=== PATIENT | male | born 1945 | race Two or more races ===

== ENCOUNTER 2020-02-03 00:25 | Inpatient (IN) | payer BC ==
[~2020-02-03] VITALS: Ht 180.3 cm; Wt 104.3 kg
[2020-02-03 00:20] VITALS: BP 115/64
[2020-02-03 00:30] VITALS: BP 115/64
--- NOTE | 2020-02-03 03:01 | NUR ---
RN NOTES: AT 2345-RECEIVED PHONE CALL FROM KAMAR/RN IN [facility]. GIVEN ENDORSEMENT REGARDING PATIENT M.D., 74 Y.O., NKA, BIPOLAR DISORDER, PARKINSONS DISEASE, LEFT LEG CELLULITIS, ATRIAL FIBRILLATION ON ANTICOAGULANT, WITH C/O FEVER 103.3,BROUGHT BY AMBULANCE IN THE HOSPITAL, LACTIC 1.4, HE WAS GIVEN TOTAL OF 3 LITERS NORMAL SALINE, VANCOMYCIN 1 GRAM, ROCEPHINE 2 GRAMS, HIS BP-268/130 HE WAS GIVEN LABETALOL 20MG AND HYDRALAZINE 10 MG LATETS BP-116/57, TYLENOL 1G GIVEN FOR FEVER LATEST T-98.2, NO PAIN OR DISCOMFORT , REST OF THE SKIN INTACT EXCEPT THE LEFT LEG.IV CANNULA IN THE RAC G#20.ETA WITHIN 15-20 MINUTES VIA [facility].
--- NOTE | 2020-02-03 03:07 | NUR ---
RN NOTES: PATIENT ARRIVED AT 0020, ACCOMPANIED BY 3 EMT VIA GURNEY([facility]ANCE), A/O2-3, WITH PERIODS OF CONFUSION AND FORGETFULNESS, DX;LEFT LEG CELLULITIS/UTI, NOTED WITH BILATERAL COURSE HAND TREMOR SECONDARY TO HIS PARKINSON DISEASE, NON LABORED BREATHING, NO SOB, NO PAIN OR DISCOMFORT, PLACE IN COMFORTABLE POSITION,SEMI FOWLERS, ORIENTED TO UNIT AND STAFF.BED LOW AND LOCKED, CALL LIGHT KEPT WITHIN EASY REACH, AGREED FOR BODY ASSESSMENT: LEFT FOOT SWELLING AND CELLULITIS(REDNESS NOTED, NO DRAINAGE OR EXUDATE NOTED,OPEN WOUND, NO ODOR)PICTURES TAKEN.PATIENT UNABLE TO RECALL WHEN HE RECIEVED HIS FLU AND PNA VACCINE. NO RESPIRATORY SYMPTOM, HE HAS URINARY FREQUENCY AND NOTED WITH TEA COLORED URINE, USING URINAL AT THE BED SIDE. -WHEN RN ASK REGARDING HIS MEDICATION LIST, HE WAS LOOKING FOR HIS PHONE BUT HE SAID HE MIGHT LEFT IT AT HOME THE LIST IS THERE, UNABLE TO RECALL WHAT ARE HIS PRESENT MEDICATION TAKEN AT HOME, HE CANNOT RECALL ALSO ANY PHONE NUMBER FROM MEMBERS OF FAMILY HE LOOKS TIRED AND HE SAID "I WANT TO REST AND SLEEP". Addendum: 02/03/20 at 0552 by CRYSTAL GOODRICH RN ADDED NOTES: PATIENT IS ON TELE-MONITOR SR WITH PVC RATE=90
--- NOTE | 2020-02-03 03:14 | NUR ---
RN NOTES: AT 0110 DR. MURRELL NOTIFIED ABOUT THE ADMISSION, SHE IS AWARE, AWAITING FOR HER TO PUT IN ADMISSION ORDERS.
--- NOTE | 2020-02-03 03:29 | NUR ---
RN NOTES: F/U WITH REGARDING ADMISSION ORDERS AT THE MOMENT SHE IS VERY BUSY WITH A CRITICAL PATIENT, SHE IS AWARE OF THE DIRECT ADMISSION.
[2020-02-03] MEDS ORDERED: HYDROCODONE/APAP 5/325MG TABLET PO PRN (03:30)
[2020-02-03] MEDS ORDERED: MAGNESIUM HYDROXIDE 30 ML UDC PO PRN (03:30)
[2020-02-03] MEDS ORDERED: MAG HYDROX/AL HYDROX/SIMETH 30 ML UDC PO PRN (03:30)
[2020-02-03] MEDS ORDERED: MORPHINE SULFATE INJ 2 MG/ML DISP.SYRIN IV PRN (03:30)
[2020-02-03] MEDS ORDERED: Z GUARD REMEDY 2 OZ OINT TP PRN (03:30)
[2020-02-03] MEDS ORDERED: ACETAMINOPHEN 325 MG TABLET PO PRN (03:30)
[2020-02-03] MEDS ORDERED: ONDANSETRON HCL/PF 4 MG/2 ML VIAL IVP PRN (03:30)
[2020-02-03] MEDS ORDERED: ZOLPIDEM TARTRATE 5 MG TABLET PO PRN (03:30)
[2020-02-03] MEDS ORDERED: CEFTRIAXONE 1 G in IV D5W 50 ML IV SCH (03:30)
[2020-02-03 04:00] VITALS: BP 135/60
--- NOTE | 2020-02-03 04:03 | NUR ---
RN NOTES: -FOR ORDER OF ROCEPHINE 1 GRAM Q 24HOURS, PATIENT ALREADY RECEIVED THE FIRST DOSE FROM [facility] PRIOR TO DIRECT ADMIT IN [facility]. -CHARGE NURSE NOTIFIED.
[2020-02-03] MEDS: IV NS 0.9% 1,000 ML IV PRN ×2 (04:05→13:50)
--- NOTE | 2020-02-03 04:32 | NUR ---
RN NOTES: AT 0405 IVF ON NS AT 100ML/HR STARTED VIA INFUSION PUMP, ASSISTED TO USE URINAL, HE HAD VERY SCANTY AMOUNT OF URINE AROUND 50CC,DARK TEA COLORED.
--- NOTE | 2020-02-03 04:34 | NUR ---
RN NOTES: MRSA SWAB OF BOTH NARES DONE AND SEND TO LAB.
--- NOTE | 2020-02-03 07:42 | NUR ---
RN NOTES: ABLE TO SLEEP AND REST, NO SIGN OF RESPIRATORY DISTRESS,FALL AND SAFETY PRECAUTION OBSERVED, ON SINUS RHYTHM RATE-88, URINE 3B=750WO ONLY, ENDORSED TO F/U HOME MEDICATION WITH FAMILY, TO REVIEW REVIEW CODE STATUS WITH PATIENT ONCE FULLY AWAKE,ASPIRATION PRECAUTION OBSERVED,ENDORSED FOR CONTINUITY OF CARE.
--- NOTE | 2020-02-03 07:56 | NUR ---
MS/RN OPENING NOTE RECEIVED PATIENT FROM BLACKJACK PIT BOSS NURSE. PATIENT IN STABLE CONDITION. A/O X1-2. PATIENT ON ROOM AIR, TOLERATING WELL. BREATHING EVEN, NON LABORED, NO SOB NOTED. RAC #20 INTACT AND PATENT. SAFETY MEASURES IN PLACE, BED LOCKED AND IN LOWEST POSITION, CALL LIGHT WITHIN REACH. WILL CONTINUE TO MONITOR AND ENSURE SAFETY.
[2020-02-03 08:00] VITALS: BP 106/48
[2020-02-03] MEDS: PANTOPRAZOLE 40 MG TABLET.DR PO SCH (08:40)
[2020-02-03] MEDS ORDERED: CARB1TAB31 PO (09:41)
[2020-02-03] MEDS ORDERED: AMLO-212 PO (09:41)
[2020-02-03] MEDS ORDERED: WARF10TA45 PO (09:41)
[2020-02-03] MEDS ORDERED: LOSA100T31 PO (09:41)
[2020-02-03] MEDS ORDERED: LEVO125T8 PO (09:41)
[2020-02-03] MEDS ORDERED: DIVA-78 PO (09:41)
[2020-02-03 11:02] LABS: BASOPHILS # (AUTO) 0.1 /CMM (0.0-0.2); BASOPHILS % (AUTO) 0.4 % (0.0-2.0); HEMATOCRIT 32 % (39-51); HEMOGLOBIN 10.6 g/dL (13.5-17.5); LYMPHOCYTES # (AUTO) 1.5 /CMM (0.8-4.8); LYMPHOCYTES % (AUTO) 10.6 % (20.0-44.0); MEAN CORPUSCULAR HGB CONC 33 g/dl (31.0-36.0); MEAN CORPUSCULAR VOLUME 96 fL (80-96); MONOCYTES # (AUTO) 0.7 /CMM (0.1-1.30); MONOCYTES % (AUTO) 4.6 % (2.0-12.0); NEUTROPHILS # (AUTO) 12.1 /CMM (1.8-8.9); NEUTROPHILS % (AUTO) 84.4 % (43.0-81.0); PLATELET COUNT (AUTO) 127 /CMM (150-450); RED BLOOD CELL COUNT(AUTO) 3.35 MIL/uL (4.5-6.0); WHITE BLOOD COUNT (AUTO) 14.3 K/uL (4.3-11.0)
[2020-02-03 11:40] LABS: THYROID STIMULATING HORMONE 0.875 uIU/mL (0.358-3.74)
[2020-02-03 11:46] LABS: CALCIUM, SERUM 7.6 mg/dL (8.5-10.1); CREATININE 1.1 mg/dL (0.6-1.3); POTASSIUM 4.1 mmol/L (3.5-5.1)
[2020-02-03 11:52] LABS: ALBUMIN 1.9 g/dL (3.4-5.0); BILIRUBIN,DIRECT 0.2 mg/dL (0.0-0.2); BILIRUBIN,TOTAL 0.3 mg/dL (0.2-1.0); MAGNESIUM 1.7 mg/dL (1.8-2.4); PHOSPHORUS 2.2 mg/dL (2.5-4.9); TOTAL PROTEIN, SERUM 6.5 g/dL (6.4-8.2)
[2020-02-03] MEDS ORDERED: PHYTONADIONE INJ 10 MG/1 ML AMPUL SQ SCH (12:30)
[2020-02-03] MEDS ORDERED: NEUTRA PHOS 1 POWD.PACKET PO ONE (13:30)
[2020-02-03] MEDS: CEFTRIAXONE 2 G in IV D5W 100 ML IV SCH (14:42)
[2020-02-03] MEDS ORDERED: CEFTRIAXONE 2 G in IV D5W 50 ML IV SCH (15:00)
[2020-02-03] MEDS ORDERED: VANCOMYCIN 1.25 GM in IV D5W 250 ML IV SCH ×2 (16:00→18:00)
[2020-02-03] MEDS: DIVALPROEX SODIUM 500 MG TABLET.DR PO SCH (16:33)
[2020-02-03] MEDS: CARBIDOPA/LEVODOPA 10/100 MG 1 UDTAB PO SCH (16:33)
--- NOTE | 2020-02-03 18:55 | NUR ---
MS/RN CLOSING NOTE PATIENT REMAINS IN STABLE CONDITION. PATIENT A/O X2, ON ROOM AIR TOLERATING WELL. BREATHING EVEN, NON LABORED, NO SOB NOTED. TELE MONITOR READING NSR 87. RAC # 20 INTACT AND PATENT. SAFETY MEASURES IN PLACE. WILL ENDORSE TO DEPARTMENT STORE GENERAL MANAGER NURSE.
[2020-02-03 20:00] VITALS: BP_SYST 103; BP_SYST 97; BP_DIAS 59
--- NOTE | 2020-02-03 20:00 | NUR ---
RN NOTE RECEIVED PT IN BED. PT IS A/A/O X2. PT IS ON RA SATING 96%.PT HAS UNLABORED BREATHING,PT IS ON TELE MONITOR SHOWING SR WITH HR IN 80s. SAFETY MEASURES IN PLACE.
[2020-02-04] VITALS: BP 121/60
[2020-02-04] MEDS: IV NS 0.9% 1,000 ML IV PRN (03:46)
[2020-02-04 04:00] VITALS: BP 129/62
[2020-02-04 06:56] LABS: CALCIUM, SERUM 7.8 mg/dL (8.5-10.1); CREATININE 0.9 mg/dL (0.6-1.3); MAGNESIUM 1.9 mg/dL (1.8-2.4); PHOSPHORUS 2.1 mg/dL (2.5-4.9); POTASSIUM 3.8 mmol/L (3.5-5.1)
[2020-02-04 07:05] LABS: BASOPHILS % (AUTO) 0.2 % (0.0-2.0); EOSINOPHILS % (AUTO) 0.2 % (0.0-6.0); HEMATOCRIT 32 % (39-51); HEMOGLOBIN 10.4 g/dL (13.5-17.5); LYMPHOCYTES # (AUTO) 1.2 /CMM (0.8-4.8); LYMPHOCYTES % (AUTO) 10.4 % (20.0-44.0); MEAN CORPUSCULAR HGB CONC 33 g/dl (31.0-36.0); MEAN CORPUSCULAR VOLUME 97 fL (80-96); MONOCYTES # (AUTO) 0.7 /CMM (0.1-1.30); MONOCYTES % (AUTO) 5.7 % (2.0-12.0); NEUTROPHILS # (AUTO) 9.8 /CMM (1.8-8.9); NEUTROPHILS % (AUTO) 83.5 % (43.0-81.0); PLATELET COUNT (AUTO) 119 /CMM (150-450); RED BLOOD CELL COUNT(AUTO) 3.26 MIL/uL (4.5-6.0); WHITE BLOOD COUNT (AUTO) 11.7 K/uL (4.3-11.0)
--- NOTE | 2020-02-04 07:24 | NUR ---
RN NOTE PT STAYED STABLE DURING MY SHIFT, REPORT GIVEN TO INCOMING SHIFT FOR TOBY.
--- NOTE | 2020-02-04 07:55 | NUR ---
PUBLIC RECORDS RESEARCHER OPENING NOTES RECEIVED PATIENT RESTING IN BED, IN STABLE CONDITION. A/O X3-4 PATIENT ON ROOM AIR, BREATHING EVEN, UNLABORED, NO SOB NOTED. IV TO RAC #20 INTACT AND PATENT FLUSHING WELL. BED AT LOWEST POSITION AND LOCKED WITH SIDE RAILS UPX2 AND CALL LIGHT WITHIN REACH WILL CONTNUNE TO MONITOR PATIENT THROUGH SHIFT. ALL SAFETY MEASURES IN PLACE.
[2020-02-04 08:00] VITALS: BP 143/75
[2020-02-04] MEDS: PANTOPRAZOLE 40 MG TABLET.DR PO SCH (08:06)
[2020-02-04] MEDS: LEVOTHYROXINE SODIUM 125 MCG TABLET PO SCH (08:06)
--- NOTE | 2020-02-04 10:13 | NUR ---
WOUND CARE CONSULT: PT PRESENTS WITH CHRONIC WOUNDS TO LEFT LOWER LEG, PRESENT ON ADMISSION. DRESSING IS DRY AND INTACT TO LEFT LOWER LEG. REVIEWED PHOTOS. EDEMA, REDNESS AND SCALY SKIN NOTED WELL CHRONIC WOUNDS TO LEFT LOWER LEG AND FOOT. RECOMMEND DPM CONSULT. DR MUELLER NOTIFIED OF CONSULT REQUEST. CURRENT TOMY SCORE IS 17. WILL SEE PRN. ERICKSON IN AGREEMENT WITH PLAN OF CARE.
[2020-02-04] MEDS: DIVALPROEX SODIUM 500 MG TABLET.DR PO SCH ×2 (10:25→16:33)
[2020-02-04] MEDS: AMLODIPINE BESYLATE 5 MG TABLET PO SCH (10:25)
[2020-02-04] MEDS: CARBIDOPA/LEVODOPA 10/100 MG 1 UDTAB PO SCH ×3 (10:26→16:33)
[2020-02-04] MEDS: LOSARTAN POTASSIUM 50 MG TABLET PO SCH (10:26)
[2020-02-04] MEDS: VANCOMYCIN 1.25 GM in IV D5W 250 ML IV SCH ×2 (11:37→22:43)
[2020-02-04] MEDS ORDERED: K PHOS NEUTRAL 250 MG TABLET PO ONE (14:00)
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
--- NOTE | 2020-02-04 16:13 | NUR ---
PT REFUSED ARTERIAL DUPLEX ON LEFT LEG DUE TO SENSITIVE PAIN AND WANTS THE EXAM DONE TOMORROW.
[2020-02-04] MEDS: CEFTRIAXONE 2 G in IV D5W 100 ML IV SCH (16:17)
[2020-02-04 16:41] VITALS: BP 117/71
[2020-02-04] MEDS ORDERED: WARFARIN SODIUM 5 MG TABLET PO SCH ×2 (17:00)
--- NOTE | 2020-02-04 18:57 | NUR ---
SPECIAL EDUCATION ITINERANT TEACHER CLOSING NOTES PATIENT RESTING IN BED, A/O X-4 PATIENT ON ROOM AIR, BREATHING EVEN, UNLABORED, NO SOB NOTED. IV TO RAC #20 INTACT AND PATENT FLUSHING WELL. BED AT LOWEST POSITION AND LOCKED WITH SIDE RAILS UPX2 AND CALL LIGHT WITHIN REACH WILL ENDORSE TO ONCOMING SHIFT.
--- NOTE | 2020-02-04 19:30 | NUR ---
FACTORY MACHINE COMPUTER OPERATOR NOTE: PATIENT RESTING IN BED, NO ACUTE DISTRESS NOTED. BREATHING EVEN AND UNLABORED, NO SOB NOTED. IV TO RAC IN PLACE, INFUSING NS AT 75ML/HR. DRESSING TO LEFT LEG IN PLACE, NO BLEEDING OR DRAINAGE NOTED. BED LOCKED AND IN LOWEST POSITING, CALL LIGHT IN REACH. WILL CONTINUE TO MONITOR.
[2020-02-04 20:00] VITALS: BP 107/57
[2020-02-05] VITALS: BP 108/50
[2020-02-05] MEDS: IV NS 0.9% 1,000 ML IV PRN (03:30)
--- NOTE | 2020-02-05 03:30 | NUR ---
PALLET REPAIRER NOTE: PATIENT SLEEPING IN BED, NO ACUTE DISTRESS NOTED. BREATHING EVEN AND UNLABORED, NO SOB NOTED. IV TO RAC IN PLACE, INFUSING NS AT 75ML/HR. DRESSING TO LEFT LEG IN PLACE, NO BLEEDING OR DRAINAGE NOTED. BED LOCKED AND IN LOWEST POSITING, CALL LIGHT IN REACH. WILL CONTINUE TO MONITOR.
[2020-02-05 04:00] VITALS: BP 102/44
--- NOTE | 2020-02-05 06:10 | NUR ---
FIELD INTERVIEWER NOTE: PATIENT RESTING IN BED, NO ACUTE DISTRESS NOTED. BREATHING EVEN AND UNLABORED, NO SOB NOTED. IV TO RAC IN PLACE, INFUSING NS AT 75ML/HR. DRESSING TO LEFT LEG IN PLACE, NO BLEEDING/DRAINAGE NOTED. BED LOCKED AND IN LOWEST POSITING, CALL LIGHT IN REACH. WILL ENDORSE TO DAY NURSE TO CONTINUE WITH PLAN OF CARE.
[2020-02-05 06:42] LABS: BASOPHILS % (AUTO) 0.2 % (0.0-2.0); EOSINOPHILS % (AUTO) 0.7 % (0.0-6.0); HEMATOCRIT 31 % (39-51); HEMOGLOBIN 10.4 g/dL (13.5-17.5); LYMPHOCYTES # (AUTO) 1.8 /CMM (0.8-4.8); LYMPHOCYTES % (AUTO) 17.6 % (20.0-44.0); MEAN CORPUSCULAR HGB CONC 33 g/dl (31.0-36.0); MEAN CORPUSCULAR VOLUME 96 fL (80-96); MONOCYTES # (AUTO) 0.6 /CMM (0.1-1.30); MONOCYTES % (AUTO) 5.5 % (2.0-12.0); NEUTROPHILS # (AUTO) 7.9 /CMM (1.8-8.9); PLATELET COUNT (AUTO) 138 /CMM (150-450); RED BLOOD CELL COUNT(AUTO) 3.27 MIL/uL (4.5-6.0); WHITE BLOOD COUNT (AUTO) 10.4 K/uL (4.3-11.0)
[2020-02-05 07:06] LABS: CALCIUM, SERUM 7.8 mg/dL (8.5-10.1); CREATININE 0.8 mg/dL (0.6-1.3); PHOSPHORUS 2.6 mg/dL (2.5-4.9); POTASSIUM 4.3 mmol/L (3.5-5.1)
--- NOTE | 2020-02-05 07:35 | NUR ---
GOURMET COFFEE ATTENDANT OPENING NOTES RECEIVED PATIENT RESTING IN BED, A/OX4, ON RA WITH NO ACUTE RESPIRATORY DISTRESS NOTED. BREATHING EVEN AND UNLABORED WITH NO C/O OR S/S OF SOB, NO C/O PAIN. IV TO RT AC #20G IN PLACE, INTACT AND FLUSHING WELL, INFUSING NS AT 75ML/HR. NO S/S OF REDNESS, SWELLING NO INFILTRATION NOTED. BED IS AT LOWEST POSITION AND LOCKED WITH SIDE RAILS UPX 3 AND CALL LIGHT IN REACH. WILL CONTINUE TO MONITOR PATIENT THROUGH OUT SHIFT.
[2020-02-05] MEDS: LEVOTHYROXINE SODIUM 125 MCG TABLET PO SCH (07:42)
[2020-02-05] MEDS: PANTOPRAZOLE 40 MG TABLET.DR PO SCH (07:42)
[2020-02-05 08:00] VITALS: BP 136/64
[2020-02-05] MEDS: DIVALPROEX SODIUM 500 MG TABLET.DR PO SCH ×2 (09:00→17:05)
[2020-02-05] MEDS: LOSARTAN POTASSIUM 50 MG TABLET PO SCH (09:00)
[2020-02-05] MEDS: CARBIDOPA/LEVODOPA 10/100 MG 1 UDTAB PO SCH ×3 (09:01→17:05)
[2020-02-05] MEDS: AMLODIPINE BESYLATE 5 MG TABLET PO SCH (09:01)
[2020-02-05] MEDS: VANCOMYCIN 1.25 GM in IV D5W 250 ML IV SCH ×2 (11:27→23:08)
[2020-02-05 12:00] VITALS: BP 105/60
[2020-02-05] MEDS: CEFTRIAXONE 2 G in IV D5W 100 ML IV SCH (15:29)
[2020-02-05 16:00] VITALS: BP 113/52
[2020-02-05] MEDS: WARFARIN SODIUM 2.5 MG TABLET PO SCH (17:07)
--- NOTE | 2020-02-05 19:15 | NUR ---
RN OPENING NOTES Received patient awake, resting on bed. On RA, no respiratory distress noted at this time. On tele monitor with NSr noted. Pt denies any discomfort at this time. Kept on bed clean, dry and comfortable. Will continue to monitor accordingly.
--- NOTE | 2020-02-05 19:47 | NUR ---
ROLL SLICING MACHINE TENDER CLOSING NOTES PATIENT RESTING IN BED, A/OX4, ON RA WITH NO ACUTE RESPIRATORY DISTRESS, BREATHING EVEN AND UNLABORED WITH NO C/O OR S/S OF SOB, NO C/O PAIN. IV TO RT AC #20G IN PLACE, INTACT AND FLUSHING WELL, INFUSING NS AT 75ML/HR. NO S/S OF REDNESS, SWELLING NO INFILTRATION NOTED. BED IS AT LOWEST POSITION AND LOCKED WITH SIDE RAILS UPX 3 AND CALL LIGHT IN REACH. WILL ENDORSE TO ONCOMING SHIFT.
[2020-02-05 20:00] VITALS: BP 117/60
[2020-02-06] VITALS: BP 118/64
[2020-02-06] MEDS: IV NS 0.9% 1,000 ML IV PRN (01:27)
[2020-02-06 04:00] VITALS: BP 123/71
[2020-02-06] MEDS: LEVOTHYROXINE SODIUM 125 MCG TABLET PO SCH (06:49)
[2020-02-06] MEDS: PANTOPRAZOLE 40 MG TABLET.DR PO SCH (06:49)
--- NOTE | 2020-02-06 06:53 | NUR ---
RN CLOSING NOTES Pt asleep on bed, no new complaints made. All nursing needs attended, due meds given as ordered. On fall and aspiration precautions, endorsed.
[2020-02-06 07:45] LABS: CALCIUM, SERUM 8.2 mg/dL (8.5-10.1); CREATININE 0.9 mg/dL (0.6-1.3); POTASSIUM 4.1 mmol/L (3.5-5.1)
[2020-02-06 08:00] VITALS: BP 139/71
--- NOTE | 2020-02-06 08:00 | NUR ---
DYE MACHINE OPERATOR OPENING NOTES RECEIVED PATIENT RESTING IN BED, A/OX4, ON RA WITH NO ACUTE RESPIRATORY DISTRESS NOTED. BREATHING EVEN AND UNLABORED WITH NO C/O OR S/S OF SOB, NO C/O PAIN. IV TO RT AC #20G IN PLACE, INTACT AND FLUSHING WELL, INFUSING NS AT 75ML/HR. NO S/S OF REDNESS, SWELLING NO INFILTRATION NOTED. BED IS AT LOWEST POSITION AND LOCKED WITH SIDE RAILS UPX 3 AND CALL LIGHT WITHIN REACH. WILL CONTINUE TO MONITOR
[2020-02-06] MEDS: CARBIDOPA/LEVODOPA 10/100 MG 1 UDTAB PO SCH ×3 (08:41→17:20)
[2020-02-06] MEDS: DIVALPROEX SODIUM 500 MG TABLET.DR PO SCH ×2 (08:42→17:20)
[2020-02-06] MEDS: LOSARTAN POTASSIUM 50 MG TABLET PO SCH (08:43)
[2020-02-06] MEDS: AMLODIPINE BESYLATE 5 MG TABLET PO SCH (08:43)
[2020-02-06] MEDS: VANCOMYCIN 1.25 GM in IV D5W 250 ML IV SCH (10:45)
[2020-02-06] MEDS: CEFTRIAXONE 2 G in IV D5W 100 ML IV SCH (14:35)
[2020-02-06] MEDS: WARFARIN SODIUM 2.5 MG TABLET PO SCH (17:19)
--- NOTE | 2020-02-06 18:30 | NUR ---
Pt resting in bed eating dinner.Pt takes time to eat on his own, refusing assistance saying he can managed on his own. Pt takes time to take his meds,taking them one at a time. Watching pt closely while taking his pills. Endorsed assembler 1st shift to do wound C/S G/S of LLE stasis ulcer.Call light placed within reach,
--- NOTE | 2020-02-06 19:20 | NUR ---
RN OPENING NOTES Received patient asleep on bed, no s/sx of distress/discomfort noted. On fall and aspiration precautions. Will continue to monitor accordingly.
[2020-02-06 20:00] VITALS: BP 111/66
--- NOTE | 2020-02-07 06:26 | NUR ---
RN CLOSING NOTES Pt sitting on edge of bed. Able to ambulate to bathroom, no BM noted. Offered to patient warm prune juice. Pt noted with good sleep throughout the shift. All nursing needs attended. No new complaints made. On fall and aspiration precautions. Endorsed.
[2020-02-07 06:56] LABS: CALCIUM, SERUM 8.6 mg/dL (8.5-10.1)
--- NOTE | 2020-02-07 07:51 | NUR ---
MS/RN OPENING NOTES RECEIVED PATIENT ON BED AWAKE ALERT AND ORIENTED X4. PATIENT IN NO APPARENT RESPIRATORY DISTRESS NOTED. NO COMPLAINED OF PAIN AT THIS TIME. WILL CONTINUE TO MONITOR.
[2020-02-07 08:00] VITALS: BP 135/64
[2020-02-07] MEDS: LEVOTHYROXINE SODIUM 125 MCG TABLET PO SCH (09:08)
[2020-02-07] MEDS: PANTOPRAZOLE 40 MG TABLET.DR PO SCH (09:09)
[2020-02-07] MEDS: AMLODIPINE BESYLATE 5 MG TABLET PO SCH (09:09)
[2020-02-07] MEDS: CARBIDOPA/LEVODOPA 10/100 MG 1 UDTAB PO SCH ×3 (09:09→17:00)
[2020-02-07] MEDS: LOSARTAN POTASSIUM 50 MG TABLET PO SCH (09:10)
[2020-02-07] MEDS: DIVALPROEX SODIUM 500 MG TABLET.DR PO SCH ×2 (09:10→17:58)
[2020-02-07] MEDS: CEFTRIAXONE 2 G in IV D5W 100 ML IV SCH (15:50)
[2020-02-07 16:06] VITALS: BP 132/67
[2020-02-07] MEDS: WARFARIN SODIUM 2.5 MG TABLET PO SCH (18:02)
--- NOTE | 2020-02-07 19:45 | NUR ---
MS/RN CLOSING NOTES PATIENT IS ALERT AND ORIENTED X4. PATIENT IN NO APPARENT RESPIRATORY DISTRESS NOTED. NO COMPLAINED OF PAIN AT THIS TIME. IV ACCESS AT RIGHT AC # 20 G WITH IV FLUID OF NS 1L AT 75ML/HR ON AND INFUSING WELL. SEEN AND EXAMINED BY MD WITH ORDERS MADE AND CARRIED OUT. ALL DUE MEDICATIONS WAS GIVEN. WOUND DRESSING WAS CHANGED. SAFETY PRECAUTIONS WAS IN PLACED. BED IN LOWEST POSITION AND LOCKED. SIDERAILS UP X 2. CALL LIGHT WITHIN REACH. WILL ENDORSED TO TOLL OPERATOR FOR TOBY.
--- NOTE | 2020-02-07 19:50 | NUR ---
MS/RN NOTES RECEIVED PATIENT ON BED AWAKE ALERT AND ORIENTED X4. NO SIGNS OF ACUTE RESPIRATORY DISTRESS NOTED. DENIES PAIN AND DISCOMFORT AT THIS TIME. SAFETY MEASURES IN PLACE, ASPIRATION PRECAUTION EMPHASIZED. ALL NEEDS ANTICIPATED. WILL CONTINUE TO MONITOR ACCORDINGLY.
[2020-02-07 20:00] VITALS: BP 103/41
[2020-02-07] MEDS ORDERED: LEVOFLOXACIN (250MG) 250 MG TABLET PO SCH (20:00)
[2020-02-07] MEDS: CEFEPIME 2 GM in IV D5W 100 ML IV SCH (21:41)
--- NOTE | 2020-02-08 06:17 | NUR ---
RN NOTES ALL NEEDS ATTENDED AND MET, ABLE TO REST AND SLEPT AT INTERVALS. STABLE THROUGHOUT THE SHIFT. KEPT CLEAN WARM AND COMFORTABLE. SAFETY MEASURES IN PLACE. ASPIRATION PRECAUTION EMPHASIZED. DENIES ANY PAIN AT THIS TIME. WILL ENDORSE TO AM NURSE FOR CONTINUITY OF CARE.
[2020-02-08] MEDS: PANTOPRAZOLE 40 MG TABLET.DR PO SCH (06:37)
[2020-02-08] MEDS: LEVOTHYROXINE SODIUM 125 MCG TABLET PO SCH (06:37)
[2020-02-08 06:47] LABS: CALCIUM, SERUM 8.3 mg/dL (8.5-10.1); CREATININE 0.8 mg/dL (0.6-1.3); POTASSIUM 4.3 mmol/L (3.5-5.1)
[2020-02-08 08:00] VITALS: BP 127/62
--- NOTE | 2020-02-08 08:00 | NUR ---
m/s out of town collection clerk: initial assessment received pt in bed awake, a/ox4. no c/o pain or any discomfort. lle dressing in place. encourage to elevate lle. instructed to call for assistance. will continue to monitor.
[2020-02-08] MEDS: DIVALPROEX SODIUM 500 MG TABLET.DR PO SCH ×2 (09:08→17:22)
[2020-02-08] MEDS: LOSARTAN POTASSIUM 50 MG TABLET PO SCH (09:08)
[2020-02-08] MEDS: CARBIDOPA/LEVODOPA 10/100 MG 1 UDTAB PO SCH ×3 (09:08→17:22)
[2020-02-08] MEDS: AMLODIPINE BESYLATE 5 MG TABLET PO SCH (09:08)
[2020-02-08] MEDS: CEFEPIME 2 GM in IV D5W 100 ML IV SCH ×2 (09:51→21:03)
--- NOTE | 2020-02-08 10:20 | NUR ---
m/s manager employee benefits: md visit seen and examined by dr. hayes with order to d'c to snf with Discharge instructions <Transfer to SNF for further treatment. order acknowledged. pt aware. case management to make arrangement.
--- NOTE | 2020-02-08 12:00 | NUR ---
m/s brim flexer: notes resting comfortable. case management making arrangement re: d'c to snf. pt aware. will continue to monitor.
--- NOTE | 2020-02-08 15:10 | NUR ---
rigoberto/chinyere osborne: notes report given to mirta (rn assistant shift supervisor) from [facility] for continuity of care. Addendum: 02/08/20 at 1913 by ILIA AGUILAR LVN snf wants a picc line prior to discharge. cn made aware.
--- NOTE | 2020-02-08 15:15 | NUR ---
m/s migrant leader: notes cash (ariel) notified re: snf wouldn't take pt if no picc line, pt needs 4 weeks of iv antibiotics. pt made aware. cash to call [facility] and will set up a midline/picc line insertion if able today, if not tomorrow. pt for d'c planning tonight/tomorrow.
[2020-02-08 16:03] VITALS: BP 123/62
[2020-02-08] MEDS: WARFARIN SODIUM 2.5 MG TABLET PO SCH (17:22)
--- NOTE | 2020-02-08 17:30 | NUR ---
m/s dry kiln worker: notes money taken back to safe with another nurse as a witness and brought down to safe with armida (admin). midline ordered per case management. pt made aware.
--- NOTE | 2020-02-08 19:07 | NUR ---
MS RN: CONTINUITY OF CARE Patient in bed awake, tolerating on room air. Patient is A/O x4. Left leg dressing C/D/I reports tenderness but no pain at this time. Fall; Skin precaution maintained. MIDLINE insertion prior dc to facility per report.
--- NOTE | 2020-02-08 19:10 | NUR ---
m/s parole agent: notes report given to santino (rn) for continuity of care.
[2020-02-08 20:00] VITALS: BP 152/88
[2020-02-08 20:55] VITALS: BP 152/88
--- NOTE | 2020-02-08 21:04 | NUR ---
MS RN: MIDLINE ODILIA Midline inserted by CATERINA Crzu. Patient tolerated procedure well, no bleeding on the site. Right AC peripheral line removed, catheter intact.
[2020-02-09] MEDS: IV NS 0.9% 1,000 ML IV PRN (00:15)
--- NOTE | 2020-02-09 06:58 | NUR ---
MS RN: END OF SHIFT REPORT Patient A/O x4, cooperative. ODILIA Midline intact. IVF infusing, On IV Maxipime. Left leg wound dressing clean and dry, elevate on pillow, skin precaution maintained. Plan for dc to SNF today with IV ABX.
[2020-02-09 07:25] LABS: CALCIUM, SERUM 8.3 mg/dL (8.5-10.1); CREATININE 0.8 mg/dL (0.6-1.3); POTASSIUM 4.5 mmol/L (3.5-5.1)
[2020-02-09] MEDS: PANTOPRAZOLE 40 MG TABLET.DR PO SCH (07:30)
[2020-02-09] MEDS: LEVOTHYROXINE SODIUM 125 MCG TABLET PO SCH (07:30)
[2020-02-09 08:00] VITALS: BP 154/75
[2020-02-09] MEDS: DIVALPROEX SODIUM 500 MG TABLET.DR PO SCH ×2 (09:03→16:55)
[2020-02-09] MEDS: LOSARTAN POTASSIUM 50 MG TABLET PO SCH (09:03)
[2020-02-09] MEDS: AMLODIPINE BESYLATE 5 MG TABLET PO SCH (09:04)
[2020-02-09] MEDS: CARBIDOPA/LEVODOPA 10/100 MG 1 UDTAB PO SCH ×3 (09:04→16:55)
[2020-02-09] MEDS: CEFEPIME 2 GM in IV D5W 100 ML IV SCH (09:05)
--- NOTE | 2020-02-09 14:10 | NUR ---
RN MS NOTES [facility] MANAGEMENT. PT OK TO TRANSFER TODAY. VIA AMBULANCE TO [facility] ROOM 118B. SCHOOL COMMUNITY RELATIONS COORDINATOR TIME 1600. UPDATED DISCHARGE DOCUMENTS AND NOTIFIED PATIENT OF D/C TRANSFER. PT AGREED AND UNDERSTANDS OF TRANSFER. MEDICATION, DISCHARGE INSTRUCTIONS AND EDUCATION PROVIDED TO PATIENT. BELONGING CHECKED AND SIGNED, AND ITEMS / MONEY IN SAFE WAS HANDED TO PATIENT. SKIN CHECK DONE, PATIENT DECLINED/REFUSED TO HAVE PICTURES TAKEN TODAY. PATIENT STATES HE JUST HAD PICTURES TAKEN. REVIEWED CHART AND INFORMED PT PICTURES WERE TAKEN YESTERDAY MORNING AND WE WILL NEED TO RETAKE PICTURES AGAIN TODAY D/T D/C. PT REFUSED. NO PICTURES TAKEN TODAY, ELECTRICAL TECH/PROJECT MANAGER NOTIFIED AND AWARE. NO F/C IN PLACE. PT WILL TRANSFER WITH ODILIA MIDLINE IN PLACE PT WILL BE HAVING 4 WEEKS OF ANTIBIOTICS THERAPY WHILE AT [facility]. PT RESTING COMFORTABLY IN BED AWAITING AMBULANCE SCHOOL COMMUNITY RELATIONS COORDINATOR.
[2020-02-09 16:00] VITALS: BP 136/73
[2020-02-09] MEDS: WARFARIN SODIUM 2.5 MG TABLET PO SCH (16:57)
--- NOTE | 2020-02-09 19:30 | NUR ---
RN MS NOTES PT WAS PICKED UP BY 2 AMBULANCE PERSONNEL FROM [facility]. PT LEFT IN STABLE CONDITION. BELONGINGS AND DISCHARGE DOCUMENTS WITH PATIENT. PT IS IN STABLE CONDITION AND BEING TRANSFERED TO [facility]. PT VERBALIZED UNDERSTANDING
== END 2020-02-09 19:00 | DRG 854 ==
LOC: TELE 00:25 → MED 02-06 22:14
PROVIDERS: ADMIT Registered Nurse; ATTEND Internal Medicine
PROC: 0LBP0ZZ Excision of Left Lower Leg Tendon, Open Approach (ICD-10-PCS; principal; 2020-02-04)
PROC: 05H533Z Insertion of Infusion Device into Right Subclavian Vein, Percutaneous Approach (ICD-10-PCS; 2020-02-08)
PROC: B546ZZA Ultrasonography of Right Subclavian Vein, Guidance (ICD-10-PCS; 2020-02-08)
DX: A41.9 Sepsis, unspecified organism (principal); L03.116 Cellulitis of left lower limb; N39.0 Urinary tract infection, site not specified; I87.312 Chronic venous hypertension (idiopathic) with ulcer of left lower extremity; N17.9 Acute kidney failure, unspecified; M86.662 Other chronic osteomyelitis, left tibia and fibula; L97.829 Non-pressure chronic ulcer of other part of left lower leg with unspecified severity; R65.20 Severe sepsis without septic shock; E83.42 Hypomagnesemia; D64.9 Anemia, unspecified; D69.59 Other secondary thrombocytopenia; E03.9 Hypothyroidism, unspecified; E83.39 Other disorders of phosphorus metabolism; F31.9 Bipolar disorder, unspecified; G20 Parkinson's disease; I10 Essential (primary) hypertension; I48.91 Unspecified atrial fibrillation; R53.1 Weakness; E66.9 Obesity, unspecified; Z68.32 Body mass index [BMI] 32.0-32.9, adult; R79.1 Abnormal coagulation profile; Z79.01 Long term (current) use of anticoagulants; Z91.19 Patient's noncompliance with other medical treatment and regimen; T45.511A Poisoning by anticoagulants, accidental (unintentional), initial encounter; Y92.89 Other specified places as the place of occurrence of the external cause
CPT/HCPCS: 36415; 73590-TC; 80048-TC; 80053-TC; 80061-TC; 80202-TC; 82247-TC; 82248-TC; 83605-TC; 83735-TC; 84100-TC; 84443-TC; 84484-TC; 85025-TC; 85610-TC; 85730-TC; 87040-TC; 87070-TC; 87081-TC; 87086-TC; 87186-TC; 93926-TC; 97110-TC; 97112-TC; 97116-TC; 97530-TC; A6253; A6403; G0378; J0692; J0696; J3370; J3430; J7030; J7042; J7060